=== PATIENT | female | born 1980 | race Caucasian/White ===

== ENCOUNTER 2017-10-12 07:42 | Day surgery (SDC) | payer OTHER ==
[2017-10-12 08:16] VITALS: O2SAT 100
[2017-10-12] MEDS ORDERED: Midazolam 2 MG/2 ML VIAL ONE (09:06)
[2017-10-12] MEDS ORDERED: Propofol 10 mg/ml Inj (20 ML) ONE (09:06)
[2017-10-12] MEDS ORDERED: Lactated Ringer's 1,000 ML IV ONE (10:50)
[2017-10-12 13:10] VITALS: BP 114/68; PULSE 77; RESP 18; TEMP 97.5
== END 2017-10-12 13:31 | disposition home or self-care (01) ==
LOC: C.SDS 07:42
PROVIDERS: ATTEND Obstetrics & Gynecology
DX: N84.0 Polyp of corpus uteri (principal); N93.9 Abnormal uterine and vaginal bleeding, unspecified
CPT/HCPCS: 58558; 88305; J2001; J2250; J2704; J3010; J7120